=== PATIENT | male | born 1950 | race Caucasian/White ===

== ENCOUNTER → 2024-05-23 16:43 | Outpatient (REF) | payer MEDICARE, OTHER, SELFPAY | LOC: PAVMRI 16:43 | PROVIDERS: ATTENDING PHYSICIAN Family Medicine Sports Medicine; FAMILY PHYSICIAN Internal Medicine | DX: M54.6 Pain in thoracic spine (principal); M48.10 Ankylosing hyperostosis [Forestier], site unspecified | CPT/HCPCS: 72146 ==

== ENCOUNTER → 2024-12-01 09:28 | Outpatient (REF) | payer MEDICARE, OTHER, SELFPAY | LOC: MRI 3T 09:28 | PROVIDERS: ATTENDING PHYSICIAN Family Medicine Sports Medicine; PRIMARYCARE PHYSICIAN Family Medicine | DX: M17.11 Unilateral primary osteoarthritis, right knee (principal); M25.461 Effusion, right knee | CPT/HCPCS: 73721 ==